=== PATIENT | female | born 1940 | race Caucasian/White ===

== ENCOUNTER 2023-01-12 16:19 | Inpatient (IN) | payer MEDICARE ==
[~2023-01-12] VITALS: Ht 160 cm; Wt 99.0 kg
[2023-01-12 17:06] LABS: BASOPHILS ABSOLUTE AUTO 0.04 K/mm3 (0.00-0.23); BASOPHILS PERCENT AUTO 0 % (0-2); EOSINOPHILS ABSOLUTE AUTO 0.02 K/mm3 (0.00-0.68); EOSINOPHILS PERCENT AUTO 0 % (0-6); Hematocrit 31.8 % (33.0-51.0); Hemoglobin 10.2 g/dL (11.5-16.0); IMMATURE GRAN ABSOLUTE AUTO 0.05 K/mm3 (0.00-0.10); IMMATURE GRAN PERCENT AUTO 0 % (0-1); LYMPHOCYTES PERCENT AUTO 8 % (21-46); MONOCYTES ABSOLUTE AUTO 0.78 K/mm3 (0.16-1.47); MONOCYTES PERCENT AUTO 7 % (4-13); Mean Corpuscular HGB 29.2 pg (26.0-34.0); Mean Corpuscular HGB Conc 32.1 g/dL (31.5-36.5); Mean Corpuscular Volume 91 fL (80-100); Mean Platelet Volume 10.8 fL (9.1-12.4); NEUTROPHILS ABSOLUTE AUTO 9.35 K/mm3 (1.96-9.15); NEUTROPHILS PERCENT AUTO 84 % (41-73); Platelet Count 140 K/mm3 (150-400); RDW Coefficient Variation 13.8 % (11.7-14.2); RDW Standard Deviation 46.3 fL (35.1-46.3); Red Blood Cell Count 3.49 M/mm3 (3.80-5.20); White Blood Cell Count 11.14 K/mm3 (4.00-11.30)
[2023-01-12 17:24] LABS: Albumin, Blood 3.1 g/dL (3.4-5.0); Albumin/Globulin Ratio 0.8 (0.8-1.8); Bun/Creatinine Ratio 20.5 (12.0-20.0); Calcium, Blood 8.7 mg/dL (8.5-10.1); Creatinine, Blood 2.39 mg/dL (0.40-1.00); Globulin, Blood 3.7 g/dL (2.2-4.0); Potassium, Blood 3.8 mmol/L (3.5-5.5); Total Protein, Blood 6.8 g/dL (6.4-8.2)
[2023-01-12 17:44] LABS: Source, Urine Straight Cath
[2023-01-12 18:00] LABS: Appearance, Urine Cloudy (Clear); Blood, Urine 2+ (Neg); Color, Urine Yellow (P-Yellow); Glucose Qualitative, Urine Neg (Neg); Ketones, Urine Neg (Neg); Leukocyte Esterase, Urine 2+ (Neg); Nitrite, Urine Neg (Neg); Protein, Urine 2+ (Neg); Urobilinogen, Urine 3+ (Normal)
[2023-01-12 18:15] LABS: Bilirubin, Urine 2+ (Neg)
[2023-01-12 18:17] LABS: Bacteria Many /hpf; Squamous Epithelial Cells Not Seen /hpf (Few)
[2023-01-12] MEDS ORDERED: EUTHYROX175 MCG PO (20:55)
[2023-01-12] MEDS ORDERED: FURO20 PO (20:55)
[2023-01-12] MEDS ORDERED: Prozac40 MG PO (20:56)
[2023-01-12] MEDS ORDERED: GABA300 PO (20:57)
[2023-01-12] MEDS ORDERED: METO50ER PO (20:57)
[2023-01-12] MEDS ORDERED: THERA-D2000 UNIT PO (20:58)
[2023-01-12] MEDS ORDERED: ELIQUIS2.5 MG PO (20:58)
[2023-01-12] MEDS ORDERED: FERSU300 PO (20:58)
[2023-01-12] MEDS ORDERED: PRESERVISION A1 EAC2 PO (20:58)
[2023-01-12] MEDS ORDERED: INSULANI SC (20:59)
[2023-01-12] MEDS ORDERED: ACET500 PO (21:00)
[2023-01-12 22:46] VITALS: BP 117/67
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
[2023-01-13 04:45] VITALS: BP 118/62
[2023-01-13 06:23] LABS: BASOPHILS ABSOLUTE AUTO 0.03 K/mm3 (0.00-0.23); BASOPHILS PERCENT AUTO 1 % (0-2); EOSINOPHILS PERCENT AUTO 2 % (0-6); Hematocrit 30.9 % (33.0-51.0); Hemoglobin 9.8 g/dL (11.5-16.0); IMMATURE GRAN ABSOLUTE AUTO 0.03 K/mm3 (0.00-0.10); IMMATURE GRAN PERCENT AUTO 1 % (0-1); LYMPHOCYTES ABSOLUTE AUTO 0.83 K/mm3 (0.84-5.20); LYMPHOCYTES PERCENT AUTO 13 % (21-46); MONOCYTES PERCENT AUTO 8 % (4-13); Mean Corpuscular HGB 28.8 pg (26.0-34.0); Mean Corpuscular HGB Conc 31.7 g/dL (31.5-36.5); Mean Corpuscular Volume 91 fL (80-100); Mean Platelet Volume 11.4 fL (9.1-12.4); NEUTROPHILS ABSOLUTE AUTO 4.98 K/mm3 (1.96-9.15); NEUTROPHILS PERCENT AUTO 77 % (41-73); Platelet Count 97 K/mm3 (150-400); RDW Coefficient Variation 13.8 % (11.7-14.2); RDW Standard Deviation 46.3 fL (35.1-46.3); White Blood Cell Count 6.47 K/mm3 (4.00-11.30)
[2023-01-13 06:56] LABS: Albumin, Blood 2.7 g/dL (3.4-5.0); Albumin/Globulin Ratio 0.8 (0.8-1.8); Bilirubin, Total 2.3 mg/dL (0.1-1.0); Bun/Creatinine Ratio 18.7 (12.0-20.0); Calcium, Blood 7.9 mg/dL (8.5-10.1); Creatinine, Blood 2.73 mg/dL (0.40-1.00); Globulin, Blood 3.3 g/dL (2.2-4.0); Potassium, Blood 3.5 mmol/L (3.5-5.5)
[2023-01-13 07:22] VITALS: BP 121/51
[2023-01-13 11:50] LABS: Influenza A, PCR NEGATIVE (NEGATIVE); Influenza B, PCR NEGATIVE (NEGATIVE); Resp Syncytial Virus, PCR NEGATIVE (NEGATIVE); SARS-Cov-2 (COVID-19) PCR, MMC NEGATIVE (NEGATIVE)
[2023-01-13 15:13] VITALS: BP 127/62
--- NOTE | 2023-01-13 17:21 | NUR ---
SHIFT SUMMARY PATIENT HAS BEEN PLEASANT AND COOPERATIVE WITH CARE. SHE WAS UP FOR BREAKFAST AND LUNCH TO CHAIR. RESTING IN BED WITH BED ALARM ON. AOX4, FORGETFUL WHEN FIRTS WAKING UP. NO ACUTE EVENTS DURING SHIFT. RN TO RN PHONE REPORT GIVEN TO DAYLIN CHRIS AT 1645, PATIENT TRANSFERRED TO ROOM 329 AT 1700.
--- NOTE | 2023-01-13 17:56 | NUR ---
TRANSFER ASSUMED CARE FROM JUNE RN AT 1700. PATIENT'S DAUGHTER LEFT FOR THE NIGHT. SHE STATES SHE IS THE POA BUT DOCUMENTATION IS AT HOME IN [place]. PATIENT IS CURRENTLY EATING DINNER. BED ALARM ON. CALL LIGHT WITHIN REACH.
[2023-01-13 20:07] VITALS: BP 116/58
[2023-01-14 02:32] VITALS: BP 134/63
--- NOTE | 2023-01-14 04:29 | NUR ---
SHIFT SUMMARY 82 YR F ADMITTED ON 01/12/23 FOR ACUTE KIDNEY INJURY. LIMITED CODE STATUS. NO ACUTE CHANGES THIS SHIFT. PT HAS SLEPT FOR THIS ENTIRE SHIFT. SHE HAD A LARGE INCONTINENT VOID THAT REQUIRED A FULL BED CHANGE AND SHE SLEPT THROUGH THE WHOLE THING. AT SOME POIN SHE PULLED HER IV OUT AND IT WAS FOUND HANGING OFF THE SIDE OF THE BED. SHE APPEARED TO BE UNAWARE THAT SHE HAD PULLED IT. NEW IV REPLACED BY CHARGE NURSE.
[2023-01-14 05:36] LABS: BASOPHILS ABSOLUTE AUTO 0.04 K/mm3 (0.00-0.23); BASOPHILS PERCENT AUTO 1 % (0-2); EOSINOPHILS ABSOLUTE AUTO 0.13 K/mm3 (0.00-0.68); EOSINOPHILS PERCENT AUTO 2 % (0-6); Hemoglobin 9.7 g/dL (11.5-16.0); IMMATURE GRAN ABSOLUTE AUTO 0.03 K/mm3 (0.00-0.10); IMMATURE GRAN PERCENT AUTO 1 % (0-1); LYMPHOCYTES ABSOLUTE AUTO 0.71 K/mm3 (0.84-5.20); LYMPHOCYTES PERCENT AUTO 12 % (21-46); MONOCYTES ABSOLUTE AUTO 0.46 K/mm3 (0.16-1.47); MONOCYTES PERCENT AUTO 8 % (4-13); Mean Corpuscular HGB 28.6 pg (26.0-34.0); Mean Corpuscular HGB Conc 31.3 g/dL (31.5-36.5); Mean Corpuscular Volume 91 fL (80-100); Mean Platelet Volume 11.6 fL (9.1-12.4); NEUTROPHILS ABSOLUTE AUTO 4.58 K/mm3 (1.96-9.15); NEUTROPHILS PERCENT AUTO 77 % (41-73); Platelet Count 115 K/mm3 (150-400); RDW Coefficient Variation 13.9 % (11.7-14.2); RDW Standard Deviation 46.8 fL (35.1-46.3); Red Blood Cell Count 3.39 M/mm3 (3.80-5.20); White Blood Cell Count 5.95 K/mm3 (4.00-11.30)
[2023-01-14 06:10] LABS: Albumin, Blood 2.5 g/dL (3.4-5.0); Anion Gap 9 mmol/L (6-16); Blood Urea Nitrogen 54 mg/dL (8-24); Bun/Creatinine Ratio 18.9 (12.0-20.0); CO2, Blood 20 mmol/L (21-32); Calcium, Blood 8.1 mg/dL (8.5-10.1); Chloride, Blood 111 mmol/L (98-108); Creatinine, Blood 2.85 mg/dL (0.40-1.00); Glomerular Filtration Rate 16 (60-); Glucose, Blood 126 mg/dL (70-99); Magnesium, Blood 2.1 mg/dL (1.6-2.4); Potassium, Blood 3.7 mmol/L (3.5-5.5); Sodium, Blood 140 mmol/L (136-145)
[2023-01-14 08:01] VITALS: BP 136/68
[2023-01-14 09:53] LABS: Albumin, Blood 2.5 g/dL (3.4-5.0); Albumin/Globulin Ratio 0.7 (0.8-1.8); Bilirubin, Direct 1.4 mg/dL (0.0-0.3); Bilirubin, Indirect 0.2 mg/dL (0.1-0.7); Bilirubin, Total 1.6 mg/dL (0.1-1.0); Globulin, Blood 3.6 g/dL (2.2-4.0); Percent Saturation 8.6 % (15.0-50.0); Total Protein, Blood 6.1 g/dL (6.4-8.2)
[2023-01-14 15:14] VITALS: BP 129/85
--- NOTE | 2023-01-14 17:45 | NUR ---
SHIFT SUMMARY PT AxOx4. PLEASANT AND COOPERATIVE WITH CARE. PT HAD VISITORS IN ROOM MOST OF THE DAY, DAUGHTER AND SISTER. EVERYONE WAS UPDATED ON PLAN OF CARE. PT HAD NEPHROLOGY CONSULT TODAY. STRICT I&O'S WERE DOCUMENTED. PT WORKED WITH PHYSICAL THERAPY TODAY. AMBULATES WITH 1 ASSIST AND FWW. PT'S REPORTED APPETITE WAS STILL POOR TODAY, BUT SHE DID MAKE A GOOD EFFORT TO EAT HER MEALS. IV FLUIDS INFUSING. PT IS CURRENTLY SITTING UP IN CHAIR EATING HER DINNER. DENIES ANY NEEDS AT THIS TIME. CALL LIGHT IN REACH.
[2023-01-14 19:31] VITALS: BP 126/85
[2023-01-15 03:29] VITALS: BP 137/71
[2023-01-15 06:21] LABS: Hematocrit 32.8 % (33.0-51.0); Hemoglobin 10.5 g/dL (11.5-16.0)
[2023-01-15 06:47] LABS: Albumin, Blood 2.4 g/dL (3.4-5.0); Anion Gap 9 mmol/L (6-16); Blood Urea Nitrogen 50 mg/dL (8-24); Bun/Creatinine Ratio 18.2 (12.0-20.0); CO2, Blood 20 mmol/L (21-32); Calcium, Blood 8.2 mg/dL (8.5-10.1); Chloride, Blood 114 mmol/L (98-108); Creatinine, Blood 2.75 mg/dL (0.40-1.00); Glomerular Filtration Rate 17 (60-); Glucose, Blood 113 mg/dL (70-99); Magnesium, Blood 2.1 mg/dL (1.6-2.4); Phosphorus, Blood 3.8 mg/dL (2.5-4.9); Potassium, Blood 3.7 mmol/L (3.5-5.5); Sodium, Blood 143 mmol/L (136-145); Uric Acid, Blood 7.7 mg/dL (2.6-6.0)
[2023-01-15 07:29] VITALS: BP 138/66
--- NOTE | 2023-01-15 16:56 | NUR ---
SHIFT SUMMARY: PT A&O X3-4. OCCASIONALLY FORGETFUL, ESPECIALLY UPON WAKING. NO ACUTE EVENTS THIS SHIFT. NS TITRATED TO 50/HR PER DR. YODER. PT WORKED WITH PT/OT THIS SHIFT. PT ABLE TO WALK SHORT DISTANCE IN [place] W/ONE ASSIST. PT RESTING COMFORTABLY IN BED. CALL LIGHT IN REACH. BED IN LOWEST POSITION.
[2023-01-15 17:22] VITALS: BP 146/66
[2023-01-15 19:42] VITALS: BP 137/61
--- NOTE | 2023-01-16 04:21 | NUR ---
SHIFT SUMMARY PATIENT HAD NO ACUTE CHANGES. AXOX 3-4 FORGETFUL AT TIMES. ONE ASSIST TO BSC WITH FWW. PUREWICK IN PLACE. VSS/AFEBRILE. DENIES CHEST PAIN, SOB, AND N/V. PIV REMAINS INTACT. NS INFUSING AT 50 mL/HR. COOPERATIVE WITH CARE. CALL LIGHT IN REACH. BED IN LOWEST POSITION. WILL CONTINUE TO MONITOR UNTIL DAY SHIFT NURSE ASSUMES CARE.
[2023-01-16 05:51] LABS: Hematocrit 29.4 % (33.0-51.0); Hemoglobin 9.2 g/dL (11.5-16.0)
[2023-01-16 06:23] LABS: Albumin, Blood 2.4 g/dL (3.4-5.0); Anion Gap 8 mmol/L (6-16); Blood Urea Nitrogen 46 mg/dL (8-24); Bun/Creatinine Ratio 19.7 (12.0-20.0); CO2, Blood 20 mmol/L (21-32); Calcium, Blood 8.3 mg/dL (8.5-10.1); Chloride, Blood 115 mmol/L (98-108); Creatinine, Blood 2.34 mg/dL (0.40-1.00); Glomerular Filtration Rate 20 (60-); Glucose, Blood 131 mg/dL (70-99); Magnesium, Blood 2.1 mg/dL (1.6-2.4); Phosphorus, Blood 3.5 mg/dL (2.5-4.9); Potassium, Blood 3.8 mmol/L (3.5-5.5); Sodium, Blood 143 mmol/L (136-145)
[2023-01-16 07:28] VITALS: BP 140/65
[2023-01-16] MEDS ORDERED: SODBIC650 PO (12:22)
--- NOTE | 2023-01-16 13:37 | NUR ---
DISCHARGE: PT D/C @1330 VIA WHEELCHAIR WITH DAUGHTER. BED BATH GIVEN THIS AM. IV REMOVED BY ALEXYS SOLOMON W/O COMPLICATIONS. MEPILEX APPLIED TO BOTTOM FOR REDNESS. PT TO HAVE APT WITH DR. YODER 01/20/23 @1400. PT AND DAUGHTER AGREEABLE. EXPLAINED TO PT AND DAUGHTER TO MAKE APT WITH FOLLOW-UP WITH PCP. HARD SCRIPT FOR SODIUM BICARB SENT WITH PT DUE TO PHARMACY IN [place] NOT ACCEPTING OUR FAX.
== END 2023-01-16 13:31 | disposition home health service (06) | DRG 682 ==
LOC: ER 16:19 → MEDS 21:26 → ENPENDDIS 01-16 11:22 → MEDS 01-16 13:31
PROVIDERS: Internal Medicine; Internal Medicine Nephrology; Nurse Practitioner Acute Care; Student in an Organized Health Care Education/Training Program; ADMIT Internal Medicine
DX: N17.9 Acute kidney failure, unspecified (principal); G92.8 Other toxic encephalopathy; N39.0 Urinary tract infection, site not specified; E87.20 Acidosis, unspecified; M62.82 Rhabdomyolysis; R74.01 Elevation of levels of liver transaminase levels; E86.1 Hypovolemia; E80.6 Other disorders of bilirubin metabolism; I48.91 Unspecified atrial fibrillation; E03.9 Hypothyroidism, unspecified; D50.9 Iron deficiency anemia, unspecified; E86.9 Volume depletion, unspecified; N18.9 Chronic kidney disease, unspecified; E11.22 Type 2 diabetes mellitus with diabetic chronic kidney disease; D63.1 Anemia in chronic kidney disease; E88.09 Other disorders of plasma-protein metabolism, not elsewhere classified; W18.30XA Fall on same level, unspecified, initial encounter; Z11.52 Encounter for screening for COVID-19; I12.9 Hypertensive chronic kidney disease with stage 1 through stage 4 chronic kidney disease, or unspecified chronic kidney disease; F41.9 Anxiety disorder, unspecified; F32.A Depression, unspecified; Z95.0 Presence of cardiac pacemaker; Z79.01 Long term (current) use of anticoagulants; Z79.899 Other long term (current) drug therapy; Z88.4 Allergy status to anesthetic agent; Z23 Encounter for immunization; Z79.890 Hormone replacement therapy
CPT/HCPCS: 0241U; 36415; 51701; 70450; 72170; 76705; 76770; 80053; 80069; 80076; 81001; 82550; 82607; 82728; 82746; 82947; 83540; 83550; 83735; 84550; 85014; 85018; 85025; 87086; 93005; 93010; 96361-59; 96365-59; 97110; 97116; 97162; 97166; 97530; 97535; 99285-25; A9270; J0696; J1815; J7030; Q2036